=== PATIENT | male | born 1960 | race Caucasian/White ===

== ENCOUNTER 2020-09-21 19:10 | Inpatient (IN) | payer MEDICAID ==
[~2020-09-21] VITALS: Ht 170.2 cm; Wt 60.2 kg
[~2020-09-21 19:10] MED LIST: BENZ2TAB6; LITH450T; RISP1TAB45
[2020-09-21] MEDS ORDERED: BISACODYL 10 MG SUPP PR PRN (23:30)
[2020-09-21] MEDS ORDERED: DOCUSATE 100 MG CAPSULE PO PRN (23:30)
[2020-09-21] MEDS ORDERED: POLYETHYLENE GLYCOL 17 GM PACKET PO PRN (23:30)
[2020-09-22] VITALS (13 sets, daily range): BP systolic 117–152; BP diastolic 77–93
[2020-09-22 05:01] LABS: MICROSCOPIC NOT IND
[2020-09-22 06:57] LABS: BASOPHILS % (AUTO) 0 % (0-1); EOSINOPHILS % (AUTO) 1 % (1-7); LYMPHOCYTES % (AUTO) 44 % (22-44); MEAN CORPUSCULAR HEMOGLOBIN 32.3 pg (27.5-34.5); MEAN CORPUSCULAR HGB CONC 32.6 g/dL (33.2-36.2); MEAN PLATELET VOLUME 7.9 fL (7.4-10.4); MONOCYTES % (AUTO) 4 % (2-9); NEUTROPHILS % (AUTO) 52 % (42-75); PLATELET COUNT 218 x10^3/uL (130-400); RED BLOOD COUNT 4.25 x10^6/uL (4.38-5.82); RED CELL DISTRIBUTION WIDTH 12.7 % (9.4-14.8)
[2020-09-22 06:59] LABS: MD NO
[2020-09-22 07:09] LABS: ALANINE AMINOTRANSFERASE 27 U/L (12-78); ALBUMIN 4.2 g/dL (3.4-5.0); ANION GAP 10 mmol/L (5-15); CALCIUM 9.7 mg/dL (8.5-10.1); CHLORIDE 109 mmol/L (98-107)
--- NOTE | 2020-09-22 07:26 | NUR ---
LIO ESCALANTE - Fall Risk Medications present and NOT receiving anticoagulants.
[2020-09-22 07:34] LABS: ALKALINE PHOSPHATASE 84 U/L (45-117); BILIRUBIN,TOTAL 0.7 mg/dL (0.2-1.0); CHOL/HDL RATIO 3.6; CHOLESTEROL, TOTAL 144 mg/dL (140-239); FREE T4 (FREE THYROXINE) 1.21 ng/dL (0.76-1.46); HDL CHOL % 28 % (26-37); HDL CHOLESTEROL (DIRECT) 40 mg/dL (40-60); LDL CHOLESTEROL,CALCULATED 89 mg/dL (54-169); LDL/HDL RATIO 2.2 (0.5-3.0); TOTAL PROTEIN 7.3 g/dL (6.4-8.2); TRIGLYCERIDES 75 mg/dL (50-200); VLDL CHOLESTEROL 15 mg/dL (0-25)
[2020-09-22] MEDS: ACETAMINOPHEN 325 MG TABLET PO PRN (08:10)
[2020-09-22] MEDS: ONDANSETRON ODT 4 MG PO PRN (08:11)
[2020-09-22] MEDS ORDERED: TRAZ-175 PO (11:38)
[2020-09-22] MEDS ORDERED: BUSP5TAB2 PO (11:38)
[2020-09-22] MEDS ORDERED: FLU VACC QS2020-21(6MOS UP)/PF 60MCG/0.5 ML SYR IM-VACC ONE (12:00)
[2020-09-22] MEDS: QUETIAPINE 100MG TABLET PO SCH (20:06)
[2020-09-23 07:13] VITALS: BP 152/96
[2020-09-23 07:25] LABS: MEAN CORPUSCULAR HEMOGLOBIN 33.2 pg (27.5-34.5); MEAN CORPUSCULAR HGB CONC 33.1 g/dL (33.2-36.2); MEAN PLATELET VOLUME 8.1 fL (7.4-10.4); PLATELET COUNT 203 x10^3/uL (130-400); RED CELL DISTRIBUTION WIDTH 12.9 % (9.4-14.8)
[2020-09-23] MEDS: ONDANSETRON ODT 4 MG PO PRN (08:32)
[2020-09-23] MEDS: QUETIAPINE 25MG TABLET PO PRN (08:32)
[2020-09-23 08:55] LABS: MD YES
[2020-09-23 08:56] LABS: LYMPHS% (MANUAL) 50 % (22-44); MONOS#(MANUAL) 0.62 x10^3/uL (0.3-2.7); MONOS% (MANUAL) 4 % (2-9); SEG#(MANUAL) 7.08 x10^3/uL (1.8-6.8); SEGS% (MANUAL) 46 % (42-75)
[2020-09-23 08:57] LABS: SMUDGE CELLS 1+
[2020-09-23 08:59] LABS: <PLATELET ESTIMATE> ADEQUATE; <PLT MORPHOLOGY> NORMAL PLT MORPH
[2020-09-23 19:30] VITALS: BP 128/86
[2020-09-23] MEDS: QUETIAPINE 100MG TABLET PO SCH (20:47)
[2020-09-24 06:32] LABS: MEAN CORPUSCULAR HEMOGLOBIN 32.8 pg (27.5-34.5); MEAN CORPUSCULAR HGB CONC 32.5 g/dL (33.2-36.2); MEAN PLATELET VOLUME 7.8 fL (7.4-10.4); PLATELET COUNT 195 x10^3/uL (130-400); RED BLOOD COUNT 4.34 x10^6/uL (4.38-5.82); RED CELL DISTRIBUTION WIDTH 12.9 % (9.4-14.8)
[2020-09-24 06:55] LABS: MD YES
[2020-09-24 06:57] LABS: EOS#(MANUAL) 0.14 x10^3/uL (0.0-0.4); EOS% (MANUAL) 1 % (1-7); LYMPH#(MANUAL) 8.58 x10^3/uL (1-3.4); LYMPHS% (MANUAL) 60 % (22-44); MONOS#(MANUAL) 0.43 x10^3/uL (0.3-2.7); MONOS% (MANUAL) 3 % (2-9); SEG#(MANUAL) 5.15 x10^3/uL (1.8-6.8); SEGS% (MANUAL) 36 % (42-75); SMUDGE CELLS 1+
[2020-09-24 06:58] LABS: <PLATELET ESTIMATE> ADEQUATE; <PLT MORPHOLOGY> NORMAL PLT MORPH
[2020-09-24 07:36] VITALS: BP 129/84
[2020-09-24] MEDS: QUETIAPINE 25MG TABLET PO PRN (10:49)
[2020-09-24] MEDS: ACETAMINOPHEN 325 MG TABLET PO PRN ×2 (10:50→20:12)
[2020-09-24] MEDS: ONDANSETRON ODT 4 MG PO PRN (10:50)
[2020-09-24 19:58] VITALS: BP 130/86
[2020-09-24] MEDS: QUETIAPINE 100MG TABLET PO SCH (20:12)
[2020-09-24] MEDS: OLANZAPINE 5 MG TABLET PO SCH (20:12)
[2020-09-25 07:37] VITALS: BP 139/89
[2020-09-25] MEDS: OLANZAPINE 5 MG TABLET PO SCH ×2 (08:32→20:26)
[2020-09-25 10:37] VITALS: BP 139/89
[2020-09-25] MEDS: QUETIAPINE 25MG TABLET PO PRN (14:19)
[2020-09-25] MEDS ORDERED: HALOPERIDOL 5 MG TABLET PO ONE (16:30)
[2020-09-25] MEDS ORDERED: HALOPERIDOL 5 MG TABLET ONE (16:36)
[2020-09-25 19:26] VITALS: BP 135/89
[2020-09-25] MEDS: QUETIAPINE 100MG TABLET PO SCH (20:27)
[2020-09-26 07:22] VITALS: BP 129/82
[2020-09-26] MEDS: QUETIAPINE 25MG TABLET PO PRN ×2 (08:14→13:34)
[2020-09-26] MEDS: OLANZAPINE 5 MG TABLET PO SCH ×2 (08:15→21:06)
[2020-09-26 11:00] VITALS: BP 129/82
[2020-09-26 20:06] VITALS: BP 121/86
[2020-09-26] MEDS: QUETIAPINE 100MG TABLET PO SCH (21:06)
[2020-09-26] MEDS: ACETAMINOPHEN 325 MG TABLET PO PRN (21:11)
[2020-09-27 07:00] VITALS: BP 125/83
[2020-09-27] MEDS: QUETIAPINE 25MG TABLET PO PRN (08:13)
[2020-09-27] MEDS: OLANZAPINE 5 MG TABLET PO SCH ×2 (08:14→19:59)
[2020-09-27 19:07] VITALS: BP 125/82
[2020-09-27] MEDS: QUETIAPINE 100MG TABLET PO SCH (19:59)
[2020-09-28 06:30] VITALS: BP 129/89
[2020-09-28] MEDS: ONDANSETRON ODT 4 MG PO PRN (08:57)
[2020-09-28] MEDS: ACETAMINOPHEN 325 MG TABLET PO PRN (08:58)
[2020-09-28] MEDS: OLANZAPINE 5 MG TABLET PO SCH ×2 (08:58→20:55)
[2020-09-28] MEDS: QUETIAPINE 25MG TABLET PO PRN (14:45)
[2020-09-28 20:13] VITALS: BP 119/76
[2020-09-28] MEDS: QUETIAPINE 100MG TABLET PO SCH (20:55)
[2020-09-29 06:59] VITALS: BP 125/82
[2020-09-29] MEDS: OLANZAPINE 5 MG TABLET PO SCH (08:33)
[2020-09-29] MEDS: QUETIAPINE 25MG TABLET PO PRN (08:34)
[2020-09-29] MEDS: RISPERIDONE 1 MG TAB.RAPDIS PO SCH ×2 (12:21→20:40)
[2020-09-29 19:59] VITALS: BP 138/84
[2020-09-29] MEDS: QUETIAPINE 100MG TABLET PO SCH (20:40)
[2020-09-30 07:21] VITALS: BP 129/81
[2020-09-30] MEDS: RISPERIDONE 1 MG TAB.RAPDIS PO SCH ×2 (09:40→20:06)
[2020-09-30 20:00] VITALS: BP 139/84
[2020-09-30] MEDS ORDERED: TRAZODONE 100MG TABLET PO PRN (20:30)
[2020-09-30] MEDS ORDERED: QUETIAPINE 100MG TABLET PO SCH (21:00)
[2020-10-01] MEDS: QUETIAPINE 25MG TABLET PO PRN ×2 (02:18→13:16)
[2020-10-01] MEDS: ACETAMINOPHEN 325 MG TABLET PO PRN ×3 (02:18→20:47)
[2020-10-01 07:08] VITALS: BP 118/80
[2020-10-01] MEDS: RISPERIDONE 1 MG TAB.RAPDIS PO SCH ×2 (07:58→20:47)
[2020-10-01 19:50] VITALS: BP 114/79
[2020-10-01] MEDS ORDERED: QUETIAPINE 200 MG TABLET PO SCH (21:00)
[2020-10-01] MEDS ORDERED: TRAZODONE 100MG TABLET PO SCH (21:00)
[2020-10-02 07:00] VITALS: BP 143/88
[2020-10-02] MEDS: RISPERIDONE 1 MG TAB.RAPDIS PO SCH (08:50)
[2020-10-02] MEDS ORDERED: QUET200T PO (13:59)
[2020-10-02] MEDS ORDERED: LITH450T PO (13:59)
[2020-10-02] MEDS ORDERED: TRAZ-175 PO (13:59)
[2020-10-02] MEDS ORDERED: RISP-2 PO (13:59)
== END 2020-10-02 15:30 | disposition home or self-care (01) | DRG 750 ==
LOC: 3E 09-22 03:49
PROVIDERS: ADMIT Psychiatry & Neurology Psychosomatic Medicine; ATTEND Psychiatry & Neurology Psychosomatic Medicine
DX: F25.0 Schizoaffective disorder, bipolar type (principal); D72.829 Elevated white blood cell count, unspecified; E03.9 Hypothyroidism, unspecified; F14.90 Cocaine use, unspecified, uncomplicated; F31.81 Bipolar II disorder; G47.00 Insomnia, unspecified; G89.29 Other chronic pain; I10 Essential (primary) hypertension; R45.851 Suicidal ideations; Z79.899 Other long term (current) drug therapy; F10.20 Alcohol dependence, uncomplicated; M54.5 Low back pain; Z87.891 Personal history of nicotine dependence; Z20.828 Contact with and (suspected) exposure to other viral communicable diseases
CPT/HCPCS: 36415; 71045; 74018; 80053; 80061; 81003; 82140; 82607; 84439; 84443; 85025; 87426; 90686; 93005; Q0162

== ENCOUNTER 2020-10-03 20:01 | Emergency (ER) | payer MEDICAID ==
[~2020-10-03] VITALS: Ht 162.6 cm; Wt 60.7 kg
[~2020-10-03 20:01] MED LIST changes: +BUSP5TAB2 PO; +LITH450T PO; +QUET200T PO; +RISP-2 PO; +TRAZ-175 PO
--- NOTE | 2020-10-03 21:41 | NUR ---
assist RN: patient seen by Provider. patient discharged with instruction and resources. verbalized understanding.
[2020-10-03 21:44] VITALS: BP 132/76
== END 2020-10-03 21:51 | disposition home or self-care (01) ==
LOC: ED 21:12
DX: F31.9 Bipolar disorder, unspecified (principal); F25.8 Other schizoaffective disorders; G89.29 Other chronic pain; I10 Essential (primary) hypertension; E03.9 Hypothyroidism, unspecified; Z87.891 Personal history of nicotine dependence
CPT/HCPCS: 99284

== ENCOUNTER 2020-10-08 18:03 | Inpatient (IN) | payer MEDICAID ==
[~2020-10-08] VITALS: Ht 170.2 cm; Wt 62.0 kg
[~2020-10-08 18:03] MED LIST changes: -BENZ2TAB6; +BENZ2TAB6 PO
[2020-10-08 18:26] LABS: MEAN CORPUSCULAR HEMOGLOBIN 32.4 pg (27.5-34.5); MEAN CORPUSCULAR HGB CONC 32.5 g/dL (33.2-36.2); MEAN PLATELET VOLUME 8.3 fL (7.4-10.4); PLATELET COUNT 301 x10^3/uL (130-400); RED BLOOD COUNT 4.66 x10^6/uL (4.38-5.82); RED CELL DISTRIBUTION WIDTH 12.8 % (9.4-14.8)
[2020-10-08] MEDS ORDERED: ONDANSETRON ODT 4 MG PO ONE (18:30)
[2020-10-08 18:35] LABS: ALANINE AMINOTRANSFERASE 23 U/L (12-78); ALBUMIN 3.9 g/dL (3.4-5.0); ANION GAP 15 mmol/L (5-15); CALCIUM 9.4 mg/dL (8.5-10.1); CHLORIDE 103 mmol/L (98-107); CREATININE 1.02 mg/dL (0.7-1.3); SALICYLATE LEVEL 2.4 mg/dL (2.8-20.0)
--- NOTE | 2020-10-08 18:38 | NUR ---
PT BIB AMBULANCE FOR SI/HI. PT STATES HE HAS A PLAN TO KIL HIMSELF BY RUNNING IN FRONT OF A CAR. PT HAS A HX OF ATTEMPTING SUICIDE BY THE SAME METHOD (K YEAR). PT IS ALSO HEARING VOICES THAT ARE TELLING HIM TO KILL HIS FAMILY IN [place]. PT WAS FOUND OUTSIDE SLEEPING IN A TENT. PT IS SHIVERING AND STATES HE IS COLD. WARMER IN BED IN PLACE.
[2020-10-08 18:40] LABS: ALKALINE PHOSPHATASE 100 U/L (45-117); BILIRUBIN,TOTAL 0.7 mg/dL (0.2-1.0); TOTAL PROTEIN 7.7 g/dL (6.4-8.2); TROPONIN I < 0.015 ng/mL (0.000-0.045)
--- NOTE | 2020-10-08 18:43 | NUR ---
supervisor riveting note: Sitter requested from bottle house quality control technician.
[2020-10-08 18:55] LABS: MD YES
--- NOTE | 2020-10-08 18:57 | NUR ---
REPORT GIVEN TO ANGELA GOEL
[2020-10-08 19:00] LABS: <PLATELET ESTIMATE> ADEQUATE; <PLT MORPHOLOGY> NORMAL PLT MORPH; LYMPH#(MANUAL) 11.73 x10^3/uL (1-3.4); LYMPHS% (MANUAL) 41 % (22-44); MONOS#(MANUAL) 0.86 x10^3/uL (0.3-2.7); MONOS% (MANUAL) 3 % (2-9); SEG#(MANUAL) 16.02 x10^3/uL (1.8-6.8); SEGS% (MANUAL) 56 % (42-75); SMUDGE CELLS 1+
[2020-10-08] MEDS ORDERED: SODIUM CHLORIDE 0.9% 1,000ML IVBOLUS ONE (19:00)
[2020-10-08] MEDS ORDERED: SODIUM CHLORIDE FLUSH 10ML SYR IVF ONE (19:00)
[2020-10-08] MEDS ORDERED: ONDANSETRON ODT 4 MG ONE (19:17)
[2020-10-08 21:32] LABS: MICROSCOPIC INDICATED
[2020-10-08 21:43] LABS: AMPHETAMINE SCREEN, URINE Negative (Negative); BARBITURATE SCREEN, URINE Negative (Negative); BENZODIAZEPINE SCREEN, URINE Negative (Negative); CANNABINOID SCREEN, URINE Negative (Negative); COCAINE SCREEN, URINE Negative (Negative); METHADONE SCREEN, URINE Negative (Negative); OPIATE SCREEN, URINE Negative (Negative)
[2020-10-08] MEDS ORDERED: CEFTRIAXONE PMX 1GM/50ML 50 ML IV ONE (22:30)
[2020-10-08] MEDS ORDERED: AZITHROMYCIN 500 MG in SODIUM CHLORIDE 0.9% 250 ML IV ONE (22:30)
[2020-10-08] MEDS ORDERED: CEFTRIAXONE PMX 1GM/50ML 50 ML ONE (22:43)
[2020-10-08] MEDS ORDERED: POLYETHYLENE GLYCOL 17 GM PACKET PO PRN (23:00)
[2020-10-08] MEDS ORDERED: BISACODYL 10 MG SUPP PR PRN (23:00)
[2020-10-08] MEDS ORDERED: DOCUSATE 100 MG CAPSULE PO PRN (23:00)
[2020-10-08] MEDS ORDERED: PROMETHAZINE 25 MG/ML, 1ML IM PRN (23:00)
[2020-10-08] MEDS ORDERED: LABETALOL 5MG/ML, 20ML IVPush PRN (23:00)
[2020-10-08] MEDS ORDERED: ONDANSETRON 2MG/ML, 2ML IVPush PRN (23:00)
[2020-10-08] MEDS ORDERED: ACETAMINOPHEN 325 MG TABLET PO PRN (23:00)
[2020-10-08] MEDS ORDERED: OMNIPAQUE 350 MG/ML, 100ML BOTTLE ONE (23:06)
[2020-10-08 23:28] LABS: FREE T4 (FREE THYROXINE) 1.66 ng/dL (0.76-1.46)
[2020-10-08] MEDS: RISPERIDONE 1 MG TAB.RAPDIS PO SCH (23:30)
[2020-10-09 01:49] VITALS: BP 130/77
[2020-10-09] MEDS: QUETIAPINE 200 MG TABLET PO SCH ×2 (02:22→22:51)
[2020-10-09] MEDS: TRAZODONE 150MG TABLET PO SCH ×2 (02:22→22:50)
[2020-10-09] MEDS: ENOXAPARIN 40 MG/0.4 ML SQ SCH (02:22)
[2020-10-09] MEDS: OXYcodone IR 5MG TABLET PO PRN ×3 (02:23→18:41)
[2020-10-09] MEDS: ONDANSETRON ODT 4 MG PO PRN (02:24)
[2020-10-09] MEDS: D5%-0.45% NACL 1,000 ML IV SCH ×2 (02:29→09:54)
[2020-10-09 08:45] LABS: BASOPHILS % (AUTO) 1 % (0-1); EOSINOPHILS % (AUTO) 0 % (1-7); LYMPHOCYTES % (AUTO) 46 % (22-44); MEAN CORPUSCULAR HEMOGLOBIN 32.5 pg (27.5-34.5); MEAN CORPUSCULAR HGB CONC 33.4 g/dL (33.2-36.2); MEAN PLATELET VOLUME 8.1 fL (7.4-10.4); MONOCYTES % (AUTO) 5 % (2-9); NEUTROPHILS % (AUTO) 48 % (42-75); PLATELET COUNT 212 x10^3/uL (130-400); RED BLOOD COUNT 3.86 x10^6/uL (4.38-5.82); RED CELL DISTRIBUTION WIDTH 12.6 % (9.4-14.8)
[2020-10-09 08:58] LABS: ALANINE AMINOTRANSFERASE 20 U/L (12-78); ANION GAP 11 mmol/L (5-15); CALCIUM 8.6 mg/dL (8.5-10.1); CHLORIDE 108 mmol/L (98-107); CHOLESTEROL, TOTAL 121 mg/dL (140-239); CREATININE 0.94 mg/dL (0.7-1.3)
[2020-10-09 09:00] LABS: ALKALINE PHOSPHATASE 71 U/L (45-117); BILIRUBIN,TOTAL 0.5 mg/dL (0.2-1.0); CHOL/HDL RATIO 3.3; HDL CHOL % 31 % (26-37); HDL CHOLESTEROL (DIRECT) 37 mg/dL (40-60); LDL CHOLESTEROL,CALCULATED 68 mg/dL (54-169); TRIGLYCERIDES 81 mg/dL (50-200); VLDL CHOLESTEROL 16 mg/dL (0-25)
[2020-10-09 09:01] LABS: LDL/HDL RATIO 1.8 (0.5-3.0)
[2020-10-09 09:05] VITALS: BP 114/67
[2020-10-09 09:41] LABS: MD MORPH REVIEW ONLY
[2020-10-09 09:42] LABS: <PLATELET ESTIMATE> ADEQUATE; <PLT MORPHOLOGY> NORMAL PLT MORPH; SMUDGE CELLS 1+
[2020-10-09] MEDS: RISPERIDONE 1 MG TAB.RAPDIS PO SCH ×2 (11:26→22:50)
[2020-10-09] MEDS: LITHIUM CARBONATE 150 MG CAPSULE PO SCH ×2 (11:27→22:51)
[2020-10-09 13:39] VITALS: BP 116/78
[2020-10-09] MEDS: DOXYCYCLINE 100 MG in DEXTROSE 5% 250 ML IV SCH (17:54)
[2020-10-09] MEDS: D5%-0.45NACL+KCL 20MEQ 1,000 ML IV SCH (17:54)
[2020-10-09 18:30] VITALS: BP 117/71
[2020-10-09] MEDS: CEFTRIAXONE PMX 1GM/50ML 50 ML IV SCH (22:51)
[2020-10-10] MEDS: ENOXAPARIN 40 MG/0.4 ML SQ SCH (01:36)
[2020-10-10] MEDS: D5%-0.45NACL+KCL 20MEQ 1,000 ML IV SCH (01:37)
[2020-10-10 01:50] VITALS: BP 108/65
[2020-10-10] MEDS: DOXYCYCLINE 100 MG in DEXTROSE 5% 250 ML IV SCH ×2 (05:35→16:54)
[2020-10-10 05:52] LABS: MEAN CORPUSCULAR HGB CONC 33.5 g/dL (33.2-36.2); MEAN PLATELET VOLUME 8.7 fL (7.4-10.4); PLATELET COUNT 170 x10^3/uL (130-400); RED BLOOD COUNT 3.41 x10^6/uL (4.38-5.82); RED CELL DISTRIBUTION WIDTH 12.6 % (9.4-14.8)
[2020-10-10 05:59] LABS: CHLORIDE 111 mmol/L (98-107)
[2020-10-10 06:02] LABS: ANION GAP 4 mmol/L (5-15); CREATININE 0.78 mg/dL (0.7-1.3)
[2020-10-10 06:28] LABS: MD YES
[2020-10-10 06:30] LABS: EOS#(MANUAL) 0.12 x10^3/uL (0.0-0.4); EOS% (MANUAL) 1 % (1-7); LYMPH#(MANUAL) 7.31 x10^3/uL (1-3.4); LYMPHS% (MANUAL) 63 % (22-44); MONOS#(MANUAL) 0.35 x10^3/uL (0.3-2.7); MONOS% (MANUAL) 3 % (2-9); SEG#(MANUAL) 3.83 x10^3/uL (1.8-6.8); SEGS% (MANUAL) 33 % (42-75)
[2020-10-10 06:31] LABS: <PLATELET ESTIMATE> ADEQUATE; <PLT MORPHOLOGY> NORMAL PLT MORPH; SMUDGE CELLS 1+
[2020-10-10] MEDS: RISPERIDONE 1 MG TAB.RAPDIS PO SCH ×2 (08:15→19:59)
[2020-10-10] MEDS: POTASSIUM CHLORIDE 20 MEQ TAB.ER.PRT PO SCH ×3 (08:15→20:00)
[2020-10-10] MEDS: LITHIUM CARBONATE 150 MG CAPSULE PO SCH ×2 (08:15→20:00)
[2020-10-10 08:21] VITALS: BP 129/63
[2020-10-10 08:25] VITALS: BP 131/77
[2020-10-10] MEDS: OXYcodone IR 5MG TABLET PO PRN ×2 (11:35→16:53)
[2020-10-10 12:12] VITALS: BP 123/67
[2020-10-10 19:53] VITALS: BP 114/71
[2020-10-10] MEDS: TRAZODONE 150MG TABLET PO SCH (19:59)
[2020-10-10] MEDS: QUETIAPINE 200 MG TABLET PO SCH (19:59)
[2020-10-10] MEDS: CEFTRIAXONE PMX 1GM/50ML 50 ML IV SCH (23:22)
[2020-10-11 01:31] VITALS: BP 123/76
[2020-10-11] MEDS: ENOXAPARIN 40 MG/0.4 ML SQ SCH (02:02)
[2020-10-11] MEDS: DOXYCYCLINE 100 MG in DEXTROSE 5% 250 ML IV SCH ×2 (05:12→16:45)
[2020-10-11 06:30] LABS: MEAN CORPUSCULAR HEMOGLOBIN 33.4 pg (27.5-34.5); MEAN CORPUSCULAR HGB CONC 33.9 g/dL (33.2-36.2); MEAN PLATELET VOLUME 8.6 fL (7.4-10.4); PLATELET COUNT 145 x10^3/uL (130-400); RED BLOOD COUNT 3.31 x10^6/uL (4.38-5.82); RED CELL DISTRIBUTION WIDTH 12.6 % (9.4-14.8)
[2020-10-11 06:43] LABS: CHLORIDE 112 mmol/L (98-107)
[2020-10-11 07:05] LABS: ANION GAP 3 mmol/L (5-15); CALCIUM 8.9 mg/dL (8.5-10.1); CREATININE 0.72 mg/dL (0.7-1.3)
[2020-10-11 07:52] LABS: MD YES
[2020-10-11 08:04] LABS: EOS#(MANUAL) 0.09 x10^3/uL (0.0-0.4); EOS% (MANUAL) 1 % (1-7); LYMPH#(MANUAL) 4.61 x10^3/uL (1-3.4); LYMPHS% (MANUAL) 49 % (22-44); MONOS#(MANUAL) 0.47 x10^3/uL (0.3-2.7); MONOS% (MANUAL) 5 % (2-9); REACTIVE LYMPHS # (MANUAL) 0.66 x10^3/uL (0-0); REACTIVE LYMPHS % (MANUAL) 7 % (0-0); SEG#(MANUAL) 3.57 x10^3/uL (1.8-6.8); SEGS% (MANUAL) 38 % (42-75)
[2020-10-11 08:05] LABS: <PLATELET ESTIMATE> ADEQUATE; <PLT MORPHOLOGY> NORMAL PLT MORPH
[2020-10-11] MEDS: ONDANSETRON ODT 4 MG PO PRN (08:53)
[2020-10-11] MEDS: LITHIUM CARBONATE 150 MG CAPSULE PO SCH ×2 (08:53→20:37)
[2020-10-11] MEDS: RISPERIDONE 1 MG TAB.RAPDIS PO SCH ×2 (08:53→20:38)
[2020-10-11 09:09] VITALS: BP 119/73
[2020-10-11 14:46] VITALS: BP 124/76
[2020-10-11 19:19] VITALS: BP 116/78
[2020-10-11] MEDS: TRAZODONE 150MG TABLET PO SCH (20:38)
[2020-10-11] MEDS: CEFDINIR 300 MG CAPSULE PO SCH (20:38)
[2020-10-11] MEDS: DOXYCYCLINE 100MG TABLET PO SCH (20:38)
[2020-10-11] MEDS: QUETIAPINE 200 MG TABLET PO SCH (20:38)
[2020-10-12] MEDS: ENOXAPARIN 40 MG/0.4 ML SQ SCH (02:00)
[2020-10-12 02:40] VITALS: BP 108/68
[2020-10-12 06:41] VITALS: BP 134/81
[2020-10-12] MEDS: RISPERIDONE 1 MG TAB.RAPDIS PO SCH ×2 (08:38→22:38)
[2020-10-12] MEDS: CEFDINIR 300 MG CAPSULE PO SCH ×2 (08:38→22:39)
[2020-10-12] MEDS: LITHIUM CARBONATE 150 MG CAPSULE PO SCH ×2 (08:39→22:39)
[2020-10-12] MEDS: DOXYCYCLINE 100MG TABLET PO SCH ×2 (08:39→22:38)
[2020-10-12 12:26] VITALS: BP 116/77
[2020-10-12 18:27] VITALS: BP 129/78
[2020-10-12] MEDS: TRAZODONE 150MG TABLET PO SCH (22:38)
[2020-10-12] MEDS: QUETIAPINE 200 MG TABLET PO SCH (22:38)
[2020-10-13 00:31] VITALS: BP 102/66
[2020-10-13] MEDS: RISPERIDONE 1 MG TAB.RAPDIS PO SCH (08:24)
[2020-10-13] MEDS: LITHIUM CARBONATE 150 MG CAPSULE PO SCH ×2 (08:24→20:10)
[2020-10-13] MEDS: CEFDINIR 300 MG CAPSULE PO SCH ×2 (08:24→20:09)
[2020-10-13] MEDS: DOXYCYCLINE 100MG TABLET PO SCH ×2 (08:24→20:09)
[2020-10-13] MEDS: ENOXAPARIN 40 MG/0.4 ML SQ SCH (08:24)
[2020-10-13 08:28] VITALS: BP 121/79
[2020-10-13 14:06] VITALS: BP 120/78
[2020-10-13 18:47] VITALS: BP 124/75
[2020-10-13] MEDS: QUETIAPINE 200 MG TABLET PO SCH (20:10)
[2020-10-13] MEDS: TRAZODONE 150MG TABLET PO SCH (20:10)
[2020-10-14 01:27] VITALS: BP 118/85
[2020-10-14 06:54] VITALS: BP 117/75
[2020-10-14] MEDS: CEFDINIR 300 MG CAPSULE PO SCH ×2 (09:41→20:57)
[2020-10-14] MEDS: ENOXAPARIN 40 MG/0.4 ML SQ SCH (09:42)
[2020-10-14] MEDS: QUETIAPINE 100MG TABLET PO SCH (09:42)
[2020-10-14] MEDS: DOXYCYCLINE 100MG TABLET PO SCH ×2 (09:42→20:57)
[2020-10-14 10:01] VITALS: BP 109/77
[2020-10-14] MEDS: LITHIUM CARBONATE 150 MG CAPSULE PO SCH ×2 (10:44→20:57)
[2020-10-14 11:55] LABS: BASOPHILS % (AUTO) 0 % (0-1); EOSINOPHILS % (AUTO) 2 % (1-7); LYMPHOCYTES % (AUTO) 44 % (22-44); MEAN CORPUSCULAR HEMOGLOBIN 32.5 pg (27.5-34.5); MEAN PLATELET VOLUME 8.2 fL (7.4-10.4); MONOCYTES % (AUTO) 8 % (2-9); NEUTROPHILS % (AUTO) 46 % (42-75); PLATELET COUNT 194 x10^3/uL (130-400); RED BLOOD COUNT 4.13 x10^6/uL (4.38-5.82); RED CELL DISTRIBUTION WIDTH 12.8 % (9.4-14.8)
[2020-10-14 12:02] LABS: MD NO
[2020-10-14 12:07] LABS: ALANINE AMINOTRANSFERASE 20 U/L (12-78); ALBUMIN 3.4 g/dL (3.4-5.0); ANION GAP 4 mmol/L (5-15); CALCIUM 10.5 mg/dL (8.5-10.1); CHLORIDE 104 mmol/L (98-107); CREATININE 0.96 mg/dL (0.7-1.3)
[2020-10-14 12:12] LABS: ALKALINE PHOSPHATASE 74 U/L (45-117); BILIRUBIN,TOTAL 0.2 mg/dL (0.2-1.0); TOTAL PROTEIN 6.7 g/dL (6.4-8.2); TROPONIN I < 0.015 ng/mL (0.000-0.045)
[2020-10-14 12:30] VITALS: BP 120/75
[2020-10-14] MEDS ORDERED: OMNIPAQUE 350 MG/ML, 75ML BOTTLE ONE (14:54)
[2020-10-14 20:24] VITALS: BP 119/76
[2020-10-14] MEDS: QUETIAPINE 200 MG TABLET PO SCH (20:56)
[2020-10-14] MEDS: APIXABAN 5 MG TABLET PO SCH (20:57)
[2020-10-14] MEDS: TRAZODONE 150MG TABLET PO SCH (20:57)
[2020-10-15 01:51] VITALS: BP 132/87
[2020-10-15] MEDS: CEFDINIR 300 MG CAPSULE PO SCH (08:53)
[2020-10-15] MEDS: APIXABAN 5 MG TABLET PO SCH ×2 (08:53→21:10)
[2020-10-15] MEDS: QUETIAPINE 100MG TABLET PO SCH (08:53)
[2020-10-15] MEDS: DOXYCYCLINE 100MG TABLET PO SCH ×2 (08:53→21:10)
[2020-10-15] MEDS: LITHIUM CARBONATE 150 MG CAPSULE PO SCH ×2 (08:54→21:09)
[2020-10-15 09:06] VITALS: BP 113/75
[2020-10-15 15:30] VITALS: BP 116/79
[2020-10-15 20:17] VITALS: BP 120/78
[2020-10-15] MEDS: QUETIAPINE 200 MG TABLET PO SCH (21:10)
[2020-10-15] MEDS: TRAZODONE 150MG TABLET PO SCH (21:10)
[2020-10-15 21:35] LABS: MICROSCOPIC NOT IND
[2020-10-16 01:25] VITALS: BP 118/77
[2020-10-16 07:26] VITALS: BP 124/79
[2020-10-16] MEDS: APIXABAN 5 MG TABLET PO SCH ×2 (08:43→20:28)
[2020-10-16] MEDS: DOXYCYCLINE 100MG TABLET PO SCH ×2 (08:43→20:28)
[2020-10-16] MEDS: LITHIUM CARBONATE 150 MG CAPSULE PO SCH ×2 (08:44→20:29)
[2020-10-16] MEDS: QUETIAPINE 100MG TABLET PO SCH (08:44)
[2020-10-16] MEDS ORDERED: APIX5TAB PO (13:11)
[2020-10-16 14:04] VITALS: BP 133/84
[2020-10-16 18:43] VITALS: BP 116/74
[2020-10-16] MEDS: TRAZODONE 150MG TABLET PO SCH (20:27)
[2020-10-16] MEDS: QUETIAPINE 200 MG TABLET PO SCH (20:27)
[2020-10-17 02:47] VITALS: BP 102/68
[2020-10-17 07:56] VITALS: BP 119/77
[2020-10-17] MEDS: LITHIUM CARBONATE 150 MG CAPSULE PO SCH (08:06)
[2020-10-17] MEDS: QUETIAPINE 100MG TABLET PO SCH (08:06)
[2020-10-17] MEDS: APIXABAN 5 MG TABLET PO SCH (08:07)
[2020-10-17 12:51] VITALS: BP 118/78
[2020-10-21] MEDS ORDERED: APIXABAN 5 MG TABLET PO SCH (21:00)
== END 2020-10-17 16:55 | disposition home or self-care (01) | DRG 134 ==
LOC: ED 18:28 → EDIP 22:50 → 4NW 10-09 01:34 → 3N 10-09 18:25
PROVIDERS: ADMIT Internal Medicine; ATTEND Hospitalist
DX: I26.99 Other pulmonary embolism without acute cor pulmonale (principal); E43 Unspecified severe protein-calorie malnutrition; R45.850 Homicidal ideations; R45.851 Suicidal ideations; F31.9 Bipolar disorder, unspecified; E11.9 Type 2 diabetes mellitus without complications; F25.9 Schizoaffective disorder, unspecified; E03.9 Hypothyroidism, unspecified; Z20.828 Contact with and (suspected) exposure to other viral communicable diseases; K02.9 Dental caries, unspecified; E86.0 Dehydration; G89.29 Other chronic pain; M54.9 Dorsalgia, unspecified; F41.9 Anxiety disorder, unspecified; D63.8 Anemia in other chronic diseases classified elsewhere; B34.9 Viral infection, unspecified; E87.2 Acidosis; I10 Essential (primary) hypertension; K44.9 Diaphragmatic hernia without obstruction or gangrene; N28.1 Cyst of kidney, acquired; E87.6 Hypokalemia; E83.42 Hypomagnesemia; Z91.5 Personal history of self-harm; Z87.891 Personal history of nicotine dependence; Z82.49 Family history of ischemic heart disease and other diseases of the circulatory system; Z59.0 Homelessness; Z63.8 Other specified problems related to primary support group; Z79.899 Other long term (current) drug therapy
CPT/HCPCS: 36415; 71045; 71260; 71275; 74177; 80048; 80053; 80061; 80178; 80307; 81001; 81003; 83036; 83605; 83735; 84145; 84439; 84443; 84484; 85025; 85379; 87040; 93005; 96360; 99285; G0378; J0456; J0696; J1650; J7060; Q0162; Q9967; J3480; J7030; J7050; U0003